=== PATIENT | female | born 1940 | race Caucasian/White ===

== ENCOUNTER 2017-06-23 18:05 | Inpatient (IN) | END 2017-07-02 00:45 | DRG 871 | DX: A41.51 Sepsis due to Escherichia coli [E. coli] (principal); E43 Unspecified severe protein-calorie malnutrition; I21.A1 Myocardial infarction type 2; J96.01 Acute respiratory failure with hypoxia; J69.0 Pneumonitis due to inhalation of food and vomit; N17.0 Acute kidney failure with tubular necrosis; G93.40 Encephalopathy, unspecified; D69.6 Thrombocytopenia, unspecified; E11.65 Type 2 diabetes mellitus with hyperglycemia; R65.21 Severe sepsis with septic shock; I50.31 Acute diastolic (congestive) heart failure; G93.41 Metabolic encephalopathy; I47.1 Supraventricular tachycardia; N39.0 Urinary tract infection, site not specified; J98.11 Atelectasis; E87.2 Acidosis; N13.9 Obstructive and reflux uropathy, unspecified; E78.00 Pure hypercholesterolemia, unspecified; Z79.899 Other long term (current) drug therapy; E03.9 Hypothyroidism, unspecified; Z98.41 Cataract extraction status, right eye; E78.5 Hyperlipidemia, unspecified; R33.9 Retention of urine, unspecified; Z90.49 Acquired absence of other specified parts of digestive tract; Z82.3 Family history of stroke; Z82.0 Family history of epilepsy and other diseases of the nervous system; E83.39 Other disorders of phosphorus metabolism; I08.1 Rheumatic disorders of both mitral and tricuspid valves; D64.9 Anemia, unspecified; Z86.19 Personal history of other infectious and parasitic diseases ==